=== PATIENT | female | born 1995 ===

== ENCOUNTER 2021-05-15 00:50 | Emergency (ER) | payer OTHER ==
[2021-05-15 01:24] LABS: BASOPHIL 0.8 % (0-2); EOSINOPHIL 5.4 % (0-5); HCT 41.2 % (37.0-47.0); HGB 13.5 g/dl (12.5-16.0); LYMPHOCYTE 18.5 % (15-48); MCH 31.2 pg (25.0-31.0); MCHC 32.8 g/dL (32.0-36.0); MCV 95.2 fL (78.0-100.0); MONOCYTE 10.3 % (0-12); MPV 10.3 fL (6.0-9.5); NEUTROPHIL 64.7 % (41-80); NRBC 0; PLT 284 K/uL (150-400); RBC 4.33 M/uL (4.20-5.40); RDW 12.7 % (11.5-14.0); WBC 7.6 K/uL (4.0-10.5)
[2021-05-15 01:43] LABS: ALBUMIN 3.7 g/dL (3.4-5.0); BILIRUBIN - TOTAL 0.2 mg/dL (0.2-1.0); BUN/CREAT RATIO (CALC) 16.5 RATIO; CREATININE 0.79 mg/dL (0.51-0.95); POTASSIUM 3.2 mmol/L (3.5-5.1); TOTAL PROTEIN 7.7 g/dL (6.4-8.2)
[2021-05-15 02:53] LABS: BILIRUBIN NEGATIVE (NEGATIVE); BLOOD 3+ Ery/uL (NEGATIVE); CLARITY CLEAR (CLEAR); COLOR YELLOW (YELLOW); GLUCOSE (U) NORMAL (NORMAL); LEUKOCYTES NEGATIVE Leu/uL (NEGATIVE); NITRITE NEGATIVE (NEGATIVE); PROTEIN NEGATIVE (NEGATIVE); UROBILINOGEN 0.2 mg/dL (0.2-1.0)
[2021-05-15 02:59] LABS: BACTERIA TRACE; SQUAMOUS EPITHELIAL CELLS RARE; URINARY RBC 20-50; URINARY WBC RARE
== END 2021-05-15 03:12 | disposition home or self-care (01) ==
LOC: FER 00:50
PROVIDERS: Emergency Medicine
DX: N83.202 Unspecified ovarian cyst, left side (principal)
CPT/HCPCS: 36415; 80053; 81001; 83690; 85025; J7030; Q9967